=== PATIENT | female | born 1965 | race Caucasian/White ===

== ENCOUNTER 2020-03-20 09:54 | Outpatient (CLI) | payer OTHER, SELFPAY ==
--- NOTE | 2020-03-20 10:03 | MM_ITS ---
WS: [id number] BILATERAL DIGITAL SCREENING MAMMOGRAPHY WITH CAD CLINICAL INFORMATION: SCREENING HISTORY: Screening mammogram. No current complaints. COMPARISON: TECHNIQUE: Bilateral CC and MLO views. FINDINGS: Scattered fibroglandular densities bilaterally. No suspicious focal mass, asymmetry, calcifications, or architectural distortion. No evidence of malignancy. Vascular calcification. Lucent centered calci fications. Stable bilateral nodular densities. MM/[id number] IMPRESSION: BI-RADS: 2-Benign FOLLOW UP: 1 Year Follow-up Recommend return to annual screening mammography.
== END 2020-03-20 09:55 | disposition home or self-care (01) ==
LOC: RADSHAW 09:58
PROVIDERS: PCP Nurse Practitioner Family; Visit Provider Nurse Practitioner Family
DX: Z12.31 Encounter for screening mammogram for malignant neoplasm of breast (principal)
CPT/HCPCS: 77067

== ENCOUNTER 2020-12-10 14:26 | Outpatient (CLI) | payer OTHER, SELFPAY ==
--- NOTE | 2020-12-10 14:35 | XR_ITS ---
WS: [id number] SCREENING DEXA SCAN [employer] CLINICAL INFORMATION: ASYMPTOMATIC MENOPAUSAL STATE COMPARISON: None. FINDINGS: The L1-L4 bone mineral density measures 0.886 g/cm2. This corresponds to a T score score of -2.4 and Z score of -2.1. Left femoral neck bone mineral density measures 0.828 g/cm2. This corresponds to a T score of -1.4 an d Z score of -1.1. Right femoral neck bone mineral density measures 0.828 g/cm2. This corresponds to a T score -1.4of an d Z score of -1.1. Mean femoral neck bone mineral density measures 0.828 g/cm2. This corresponds to a T score of -1.4 an d Z score of -1.1. XR/XR DEXA axial skeleton* [id number] IMPRESSION: Osteopenia Patient's FRAX calculated 10 year probability for major osteoporotic fracture i s 7.8 % and osteoporotic hip fracture is 0.9%.
== END 2020-12-10 14:27 | disposition home or self-care (01) ==
PROVIDERS: PCP Nurse Practitioner Family; Visit Provider Nurse Practitioner Family
DX: Z78.0 Asymptomatic menopausal state (principal); M85.89 Other specified disorders of bone density and structure, multiple sites
CPT/HCPCS: 77080

== ENCOUNTER 2021-05-01 09:56 | Outpatient (CLI) | payer OTHER, SELFPAY ==
--- NOTE | 2021-05-01 10:06 | MM_ITS ---
WS: [id number] BILATERAL SCREENING DIGITAL MAMMOGRAM WITH CAD HISTORY: SCREENING COMPARISON: 03/20/2020 and 02/20/2019 Bilateral CC and MLO views submitted. Computer aided detection analyzed. Breast composition: There are scattered areas of fibroglandular density. No suspicious masses, microc alcifications or architectural distortion. Stable calcifications and nodules within each breast. MM/[place] [id number] IMPRESSION: BI-RADS: 2-Benign FOLLOW UP: 1 Year Follow-up
== END 2021-05-01 09:57 | disposition home or self-care (01) ==
LOC: RADSHAW 09:59
PROVIDERS: PCP Nurse Practitioner Family; Visit Provider Nurse Practitioner Family
DX: Z12.31 Encounter for screening mammogram for malignant neoplasm of breast (principal)
CPT/HCPCS: 77067

== ENCOUNTER 2022-05-04 11:26 | Outpatient (CLI) | payer OTHER, SELFPAY ==
--- NOTE | 2022-05-04 11:59 | MM_ITS ---
WS: [id number] BILATERAL SCREENING DIGITAL TOMOSYNTHESIS MAMMOGRAM WITH CAD HISTORY: SCREEN COMPARISON: 05/01/2021, 03/20/2020 Bilateral CC and MLO views with tomosynthesis and synthetic mammography submitted. Computer aided det ection analyzed. Breast composition: There are scattered areas of fibroglandular density. No suspicious masses, microc alcifications or architectural distortion. Stable nodules which are probably lymph nodes in the infer ior LEFT breast. No new nodule or distortion. MM/[place] [id number] IMPRESSION: BI-RADS: 2-Benign FOLLOW UP: 1 Year Follow-up
== END 2022-05-04 11:27 | disposition home or self-care (01) ==
LOC: RAD 11:27
PROVIDERS: PCP Nurse Practitioner Family; Visit Provider Registered Nurse
DX: Z12.13 Encounter for screening for malignant neoplasm of small intestine (principal)
CPT/HCPCS: 77063; 77067

== ENCOUNTER 2022-05-11 18:53 | Emergency (ER) | payer OTHER, SELFPAY ==
[2022-05-11 19:10] VITALS: BP 142/91; PULSE 107; RESP 19; TEMP 37.3; O2SAT 95; BMI 30.9
--- NOTE | 2022-05-11 19:19 | USR_ITS ---
PROCEDURE INFORMATION: Exam: US Duplex Left Lower Extremity Veins, Limited Exam date and time: 05/11/2022 7:40 PM Age: 56 years old Clinical indication: Leg, lower; Patient HX: Left posterior knee pain x 3-4 days. No known trauma. ; Additional info: Pain, popliteal tenderness TECHNIQUE: Imaging protocol: Real-time Duplex ultrasound of the Left Lower Extremity with 2-D johnson scale, color Doppler flow and spectral waveform analysis with image documentation. Limited exam focused on the left lower extremity veins. COMPARISON: No relevant prior studies available. FINDINGS: Left deep veins: Left superficial femoral vein deep venous thrombosis with extension into the popliteal, posterior tibial and peroneal veins. Left superficial veins: Unremarkable. Saphenofemoral junction is patent without thrombus. Soft tissues: Unremarkable. US/CV venous duplex [facility] [id number] IMPRESSION: Left superficial femoral vein deep venous thrombosis with extension into the popliteal, posterior tibial and peroneal veins.
--- NOTE | 2022-05-11 20:28 | W.ED.EXTPRO ---
HPI - Extremity Problem General: Chief complaint: Extremity Problem,Nontraumatic Stated complaint: Left leg pain Time Seen by Provider: 05/11/22 20:28 History of Present Illness: 56-year-old female comes in tonight with complaints of tenderness and swelling to the left lower leg. On exam patient is nontoxic-appearing patient does report pain and discomfort after a long road trip. Patient denies smoking. Patient reports no routine medications. Associated symptoms: Deny fever(s) Review of Systems Const: Denies: fever(s) Resp: Denies: dyspnea GI: Denies: nausea or vomiting Musc: Reports: extremity pain Physical Exam Const: COMMON NORMALS: alert HENMT: COMMON NORMALS: normocephalic HEAD & SCALP: normocephalic Resp: COMMON NORMALS: normal respiratory effort and clear to auscultation bilaterally AUSCULTATION: clear to auscultation bilaterally Cardio: COMMON NORMALS: regular rate and regular rhythm RATE: regular rate RHYTHM: regular rhythm Extremity: LEFT LOWER EXTREMITY: Yes knee joint (Popliteal tenderness) Left knee: Yes inspection, Yes palpation and Yes ROM and Yes lower leg (Calf tenderness) Neuro: SENSORIUM/ORIENTATION: Yes alert Skin: COMMON NORMALS: turgor normal GENERAL SKIN EXAM: turgor normal Course Vital Signs: Vital signs: Vital Signs Temperature 99.1 F 05/11/22 19:10 Pulse Rate 107 H 05/11/22 19:10 Respiratory Rate 19 H 05/11/22 19:10 Blood Pressure 142/91 05/11/22 19:10 Pulse Oximetry 95 05/11/22 19:10 Oxygen Delivery Me thod 05/11/22 19:10 MDM - Extremity (Nontraumatic) Medical Decision Making 56-year-old female comes in today for complaints of pain and discomfort to the left lower leg. On exam patient has some tenderness and mild swelling to the calf and the popliteal leg. Differential diagnosis includes DVT, muscle strain, contusion. Venous duplex noted a superficial femoral vein DVT with extension into the popliteal, posterior tibial, and peroneal veins. Patient was placed on Eliquis 10 mg twice a day for 7 days followed by routine maintenance. Recommend patient follow-up with primary care in 1 week for recheck. Patient stated understanding and agreed to plan. CMP was unremarkable. Lab Data : 05/11/22 20:54 Radiology Impressions Venous Duplex 05/11/22 19:19 IMPRESSION: Left superficial femoral vein deep venous thrombosis with extension into the popliteal, posterior tibial and peroneal veins. ADDENDUM: 05/11/222027 THIS REPORT CONTAINS FINDINGS THAT MAY BE CRITICAL TO PATIENT CARE. The findings were verbally communicated via telephone conference with MARGARETH ULRICH at 8:27 PM CDT on 05/11/2022. The findings were acknowledged and understood. Laboratory Results Sodium 137 mmol/L (136-145) 05/11/22 20:54 Potassium 3.7 mmol/L (3.5-5.1) 05/11/22 20:54 Chloride 102 mmol/L (98-107) 05/11/22 20:54 Carbon Dioxide 23 mmol/L (22-29) 05/11/22 20:54 Anion Gap 15.7 (5-19) 05/11/22 20:54 BUN 8 mg/dL (6-20) 05/11/22 20:54 Creatinine 0.6 mg/dL (0.5-0.9) 05/11/22 20:54 GFR Calculation 103.0 mL/min (90-130) 05/11/22 20:54 Glucose 121 mg/dL (65-115) H 05/11/22 20:54 Calculated Osmolality 284 mOsm/kg (285-295) L 05/11/22 20:54 Calcium 9.5 mg/dL (8.5-10.5) 05/11/22 20:54 Total Bilirubin 0.6 mg/dL (0.15-1.2) 05/11/22 20:54 AST 14 U/L (0-32) 05/11/22 20:54 ALT 19 U/L (0-33) 05/11/22 20:54 Alkaline Phosphatase 80 U/L (35-105) 05/11/22 20:54 Total Protein 7.8 g/dL (6.6-8.7) 05/11/22 20:54 Albumin 4.3 g/dL (3.5-5.2) 05/11/22 20:54 Globulin 3.5 g/dL (1.3-4.6) 05/11/22 20:54 Discharge Plan Discharge Patient Disposition: Home Clinical Impression: Deep vein thrombosis of lower extremity Qualifiers: Affected thrombotic vein of extremity: popliteal Chronicity: acute Laterality: left Qualified Code(s): I82.432 - Acute embolism and thrombosis of left popliteal vein Condition: Stable Prescriptions: New Eliquis DVT-PE Treat 30D Start 5 mg (74 tabs) tablets,dose pack See Rx Instructions .ROUTE .COMPLEX Qty: 74 0RF Rx Instructions: orally per package directions hydrocodone-acetaminophen 5-325 mg tablet 1 tab PO Q6H PRN (Reason: pain (scale score 7-10)) Qty: 14 0RF Discharge Orders: Discharge ED (Routine); Ordered 05/11/22 Ordered By: Margareth Ulrich Referrals: Timmy Tang CPNP [Primary Care Provider] - Discharge Diet: Usual diet Discharge Activity: Increase activity as tolerated Patient Instructions: Deep Vein Thrombosis (ED), Opioid Safety Activity Restrictions/Additional Instructions: Take medication as directed. You will need to be on the medication at least 3 months or as recommended by your primary care provider. Drink plenty of fluids with medication. Follow-up with primary care in 3 to 5 days for recheck. Return to ED for worsening symptoms such as chest pain, increased shortness of breath, or new concerns. Coding Level of Care Code ED [employer] Professor for Ariel Fuentes
[2022-05-11] MEDS: HYDROcodone-acetaminophen 7.5-325 mg Tablet 1 TAB PO (20:40)
[2022-05-11] MEDS: apixaban 5 mg Tablet 10 MG PO (20:43)
[2022-05-11 21:21] LABS: Alanine Aminotransferase 19 U/L (0-33); Albumin Level 4.3 g/dL (3.5-5.2); Alkaline Phosphatase 80 U/L (35-105); Anion Gap 15.7 (5-19); Aspartate Amino Transferase 14 U/L (0-32); Blood Urea Nitrogen 8 mg/dL (6-20); Calcium 9.5 mg/dL (8.5-10.5); Carbon Dioxide 23 mmol/L (22-29); Chloride 102 mmol/L (98-107); Globulin 3.5 g/dL (1.3-4.6); Glucose 121 mg/dL (65-115); Osmolality Calculated 284 mOsm/kg (285-295); Potassium 3.7 mmol/L (3.5-5.1); Sodium 137 mmol/L (136-145); Total Bilirubin 0.6 mg/dL (0.15-1.2); Total Protein 7.8 g/dL (6.6-8.7)
== END 2022-05-11 21:30 | disposition home or self-care (01) ==
PROVIDERS: Emergency Provider Nurse Practitioner Family; PCP Registered Nurse
DX: I82.432 Acute embolism and thrombosis of left popliteal vein (principal)
CPT/HCPCS: 80053; 93971; 99283

== ENCOUNTER 2023-05-11 10:17 | Outpatient (CLI) | payer OTHER, SELFPAY ==
--- NOTE | 2023-05-11 10:24 | MM_ITS ---
WS: [id number] BILATERAL 3D TOMOSYNTHESIS DIGITAL SCREENING MAMMOGRAPHY WITH CAD CLINICAL INFORMATION: SCREENING HISTORY: Screening mammogram. No current complaints. COMPARISON: 2021 TECHNIQUE: Bilateral CC and MLO views. FINDINGS: Scattered fibroglandular densities bilaterally. No suspicious focal mass, asymmetry, calcifications, or architectural distortion. No evidence of malignancy. Vascular calcification. Incidental punctate a nd lucent centered calcifications. Stable ovoid nodules LEFT greater than RIGHT breast. IMPRESSION: MM/[place] [id number] BI-RADS: 2-Benign FOLLOW UP: 1 Year Follow-up Recommend return to annual screening mammography.
== END 2023-05-11 10:18 | disposition home or self-care (01) ==
LOC: RAD 10:17
PROVIDERS: PCP Nurse Practitioner Family; Visit Provider Nurse Practitioner Family
DX: Z12.31 Encounter for screening mammogram for malignant neoplasm of breast (principal)
CPT/HCPCS: 77063; 77067

== ENCOUNTER 2024-06-21 09:20 | Outpatient (CLI) | payer OTHER, SELFPAY ==
--- NOTE | 2024-06-21 09:26 | MM_ITS ---
WS: [id number] BILATERAL SCREENING DIGITAL TOMOSYNTHESIS MAMMOGRAM WITH CAD HISTORY: SCREENING COMPARISON: 05/11/2023, 05/04/2022, 03/20/2020 Bilateral CC and MLO views with tomosynthesis and synthetic mammography submitted. Computer aided det ection analyzed. Breast composition: There are scattered areas of fibroglandular density. No suspicious masses, microc alcifications or architectural distortion. Scattered small round calcifications and vascular calcific ations and asymmetries within each breast are stable. MM/MM scr [place] tomosynthesis [id number] IMPRESSION: BI-RADS: 2 - Benign. FOLLOW UP: 1 Year Follow-up
== END 2024-06-21 09:21 | disposition home or self-care (01) ==
LOC: RAD 09:22
PROVIDERS: PCP Nurse Practitioner Family; Visit Provider Nurse Practitioner Family
DX: Z12.31 Encounter for screening mammogram for malignant neoplasm of breast (principal); R92.323 Mammographic fibroglandular density, bilateral breasts; R92.1 Mammographic calcification found on diagnostic imaging of breast; N64.89 Other specified disorders of breast
CPT/HCPCS: 77063; 77067

== ENCOUNTER 2025-06-27 11:27 | Outpatient (CLI) | payer BC, SELFPAY ==
--- NOTE | 2025-06-27 11:36 | MM_ITS ---
WS: [id number] BILATERAL 3D TOMOSYNTHESIS DIGITAL SCREENING MAMMOGRAPHY WITH CAD CLINICAL INFORMATION: SCREENING HISTORY: Screening mammogram. No current complaints. COMPARISON: 2023 TECHNIQUE: Bilateral CC and MLO views. FINDINGS: Scattered fibroglandular densities bilaterally. No suspicious focal mass, asymmetry, calcifications, or architectural distortion. No evidence of malignancy. Vascular calcification. Incidental punctate calcifications. Similar- appearing nodules LEFT greater than RIGHT breast. MM/MM scr tomosynthesis [id number] IMPRESSION: DENSITY: There are scattered areas of fibroglandular density. BI-RADS: 2 - Benign. FOLLOW UP: 1 Year Follow-up Recommend return to annual screening mammography.
== END 2025-06-27 11:28 | disposition home or self-care (01) ==
LOC: RAD 11:28
PROVIDERS: PCP Nurse Practitioner Family; Visit Provider Nurse Practitioner Family
DX: Z12.31 Encounter for screening mammogram for malignant neoplasm of breast (principal); R92.323 Mammographic fibroglandular density, bilateral breasts; R92.1 Mammographic calcification found on diagnostic imaging of breast; N63.25 Unspecified lump in the left breast, overlapping quadrants
CPT/HCPCS: 77063; 77067